=== PATIENT | female | born 1975 | race Caucasian/White ===

== ENCOUNTER → 2023-06-04 | Outpatient (CLI) | payer SELFPAY ==
--- NOTE | 2023-06-04 14:20 | RAD_ITS ---
INDICATION: SEGMENTAL DYSFX CERVICAL SPINE EXAMINATION/TECHNIQUE: X-RAY - XR Spine Cervical 4 or 5 Views COMPARISON: No comparison. FINDINGS: 5 views of the cervical spine, to include oblique images. BONES: Normal anatomic alignment without evidence of fracture or subluxation. No concerning bony lesion or abnormal sclerosis to suggest lesion. DISCS/JOINTS: Moderate C5-C6 degenerative disc disease with suggestion of moderate right neuroforaminal narrowing at this level. SOFT TISSUES: Unremarkable. RAD/Cerv Spine 4 or 5 Views IMPRESSION: Degenerative disc disease with neuroforaminal abnormality without abnormal hematoma narrowing. If there is persistent clinical concern for spine fracture and this is a trauma patient, recommend dedicated cervical spine CT. Electronically Signed: Gelacio Neves MD at 17:22 EDT ,
--- NOTE | 2023-06-04 14:20 | RAD_ITS ---
INDICATION: SEGMENTAL DYSFX OF LUMBAR SPINE EXAMINATION/TECHNIQUE: X-RAY - XR Spine Lumbar Min 4 Views COMPARISON: None FINDINGS: 5 views of the lumbar spine. BONES: Normal anatomic alignment without evidence of fracture or subluxation. No concerning bony lesion or abnormal sclerosis to suggest lesion. DISCS/JOINTS: No significant degenerative change. SOFT TISSUES: Unremarkable. RAD/L/S Spine Min 4 Views IMPRESSION: Unremarkable lumbar spine. If there is persistent clinical concern for spine fracture and this is a trauma patient, recommend dedicated lumbar spine CT. Electronically Signed: Gelacio Neves MD at 17:27 EDT ,
== END | disposition home or self-care (01) ==
LOC: RAD 14:05
PROVIDERS: Referring Provider Chiropractor Orthopedic; Visit Provider Chiropractor Orthopedic
DX: M99.01 Segmental and somatic dysfunction of cervical region (principal); M99.03 Segmental and somatic dysfunction of lumbar region
CPT/HCPCS: 72050; 72110